=== PATIENT | female | born 1990 | race Caucasian/White ===

== ENCOUNTER 2018-03-05 03:25 | Outpatient (CLI) | payer OTHER | END 2018-03-05 03:26 | disposition critical access hospital (66) | LOC: EMS 03:25 | PROVIDERS: ATTEND Surgery | DX: R07.89 Other chest pain (principal); R06.02 Shortness of breath; R20.2 Paresthesia of skin | CPT/HCPCS: A0425; A0427 ==

== ENCOUNTER 2018-03-05 03:35 | Emergency (ER) | payer OTHER ==
[2018-03-05] MEDS ORDERED: SODIUM CHLORIDE 0.9% 1,000 ML IV ONE (03:55)
[2018-03-05] MEDS ORDERED: ONDANSETRON 4 MG/2 ML VIAL IVP STA (03:55)
[2018-03-05] MEDS ORDERED: MORPHINE 10 MG/ML VIAL IVP STA (03:55)
[2018-03-05 04:03] LABS: BASOPHILS # (AUTO) 0.1 10^3/uL (0.0-0.1); EOSINOPHILS # (AUTO) 0.3 10^3/uL (0.0-0.7); EOSINOPHILS % (AUTO) 3.5 %; LYMPHOCYTES # (AUTO) 1.5 10^3/uL (1.5-3.5); LYMPHOCYTES % (AUTO) 17.1 %; MEAN CORPUSCULAR HEMOGLOBIN 29.2 pg (27.0-31.0); MEAN CORPUSCULAR HGB CONC 34.2 g/dL (32.0-36.0); MEAN CORPUSCULAR VOLUME 85.5 fL (81.0-99.0); MEAN PLATELET VOLUME 8.2 fL (7.9-10.8); MONOCYTES # (AUTO) 0.5 10^3/uL (0.0-1.0); MONOCYTES % (AUTO) 5.7 %; NEUTROPHILS # (AUTO) 6.6 10^3/uL (1.5-6.6); NEUTROPHILS % (AUTO) 72.7 %; PLT - PLATELET COUNT 243 10^3/uL (130-450); RED BLOOD COUNT 4.44 10^6/uL (4.20-5.40); RED CELL DISTRIBUTION WIDTH 12.8 % (12.0-15.0); WHITE BLOOD COUNT 9.1 x10^3/uL (4.8-10.8)
[2018-03-05 04:15] LABS: ALBUMIN 3.5 g/dL (3.2-5.5); BILIRUBIN,TOTAL 0.4 mg/dL (0.2-1.0); CALCIUM 9.5 mg/dL (8.5-10.3); CREATININE 0.8 mg/dL (0.4-1.0); MAGNESIUM 1.9 mg/dL (1.7-2.8); TOTAL PROTEIN 6.9 g/dL (6.7-8.2)
--- NOTE | 2018-03-05 04:23 | XRAY Report ---
Procedure Date: 03/05/2018 Accession Number: [id number] / [id number] Procedure: XR - Chest 2 View X-Ray CPT Code: 08110 FULL RESULT: EXAM: CHEST RADIOGRAPHY EXAM DATE: 03/05/2018 04:16 AM. CLINICAL HISTORY: Chest pain. Shortness of breath. COMPARISON: None. TECHNIQUE: 2 views. FINDINGS: Lungs/Pleura: No alveolar consolidation or pleural effusion seen. No pneumothorax. Mediastinum: Heart and mediastinal contours are unremarkable. Other: None. IMPRESSION: 1. No acute abnormality seen in the chest. RADIA
--- NOTE | 2018-03-05 04:54 | ED Physician Documentation ---
History of Present Illness - Stated complaint Stated Complaint: CP/SOA - Chief complaint Chief Complaint: Cardiac - History obtained from History obtained from: Patient - Additonal information Additional information: 28-year-old female presents the emergency department with chest pain and shortness of breath which started this evening. The patient reports pain throughout her bilateral ribs which cause her to feel short of breath. The patient was brought to the emergency department by EMS. Symptoms are described as moderate. The patient denies any radiation of symptoms. No recent URI symptoms, fevers, nasal congestion, cough, no abdominal pain or diaphoresis or nausea or vomiting. No other associated symptoms. No triggering factors. No specific relieving factors Review of Systems Constitutional: denies: Fever, Chills Eyes: denies: Discharge Ears: denies: Ear pain Nose: denies: Congestion Cardiac: reports: Chest pain / pressure. denies: Palpitations GI: denies: Abdominal Pain : denies: Dysuria Skin: denies: Rash Musculoskeletal: denies: Back pain Neurologic: denies: Generalized weakness Immunocompromised: denies: Chemotherapy PD PAST MEDICAL HISTORY - Past Medical History Past Medical History: No - Past Surgical History Past Surgical History: No - Present Medications Home Medications: Ambulatory Orders Medication Instructions Recorded Confirmed No Known Home Medications [No 03/05/18 03/05/18 Known Home Medications] - Allergies Allergies/Adverse Reactions: Allergies Allergy/AdvReac Type Severity Reaction Status Date / Time No Known Drug Allergies Allergy Verified 03/05/18 03:39 - Social History Does the pt smoke?: No Smoking Status: Never smoker Does the pt drink ETOH?: No Does the pt have substance abuse?: No - Immunizations Immunizations are current?: Yes PD ED PE NORMAL - General General: Alert and oriented X 3, No acute distress - HEENT HEENT: Atraumatic, PERRL, EOMI - Neck Neck: Supple, no meningeal sign - Cardiac Cardiac: RRR, Strong equal pulses - Respiratory Respiratory: No respiratory distress, Clear bilaterally - Abdomen Abdomen: Soft, Non tender, Non distended - Derm Derm: Normal color - Extremities Extremities: No deformity - Neuro Neuro: Alert and oriented X 3, Normal speech - Psych Psych: Normal mood Results - Vitals Vitals: Vital Signs - 24 hr 03/05/18 03/05/18 03:40 05:06 Temperature 36.9 C Heart Rate 80 83 Respiratory 14 19 Rate Blood Pressure 133/84 H 127/91 H O2 Saturation 98 98 Oxygen O2 Source Room air - EKG (time done) 03: 42 Rate: Rate (enter#) Rhythm: NSR Intervals: Normal ID, QRS normal Ischemia: Normal ST segments Other comments: Other comments (Normal sinus rhythm without acute ischemic changes) - Labs Labs: Laboratory Tests 03/05/18 03/05/18 03/05/18 03:58 03:58 03:58 WBC 9.1 RBC 4.44 Hgb 13.0 Hct 38.0 MCV 85.5 MCH 29.2 MCHC 34.2 RDW 12.8 Plt Count 243 MPV 8.2 Neut # (Auto) 6.6 Lymph # (Auto) 1.5 [place] # (Auto) 0.5 Eos # (Auto) 0.3 Baso # (Auto) 0.1 Absolute Nucleated RBC 0.00 Nucleated RBC % 0.0 D-Dimer Sodium 138 Potassium 3.5 Chloride 105 Carbon Dioxide 21 Anion Gap 12.0 BUN 20 Creatinine 0.8 Estimated GFR (MDRD) 86 L Glucose 98 Calcium 9.5 Magnesium 1.9 Total Bilirubin 0.4 AST 30 ALT 16 Alkaline Phosphatase 90 Troponin I < 0.04 B-Natriuretic Peptide Total Protein 6.9 Albumin 3.5 Globulin 3.4 Albumin/Globulin Ratio 1.0 Lipase 32 03/05/18 03/05/18 03:58 03:58 WBC RBC Hgb Hct MCV MCH MCHC RDW Plt Count MPV Neut # (Auto) Lymph # (Auto) [place] # (Auto) Eos # (Auto) Baso # (Auto) Absolute Nucleated RBC Nucleated RBC % D-Dimer < 200.0 L Sodium Potassium Chloride Carbon Dioxide Anion Gap BUN Creatinine Estimated GFR (MDRD) Glucose Calcium Magnesium Total Bilirubin AST ALT Alkaline Phosphatase Troponin I B-Natriuretic Peptide 5 Total Protein Albumin Globulin Albumin/Globulin Ratio Lipase - Rads (name of study) Chest x-ray Radiology: Final report received PD MEDICAL DECISION MAKING - ED course ED course: The patient's workup does not reveal an acute etiology for the source of her symptoms. On reevaluation the patient is resting comfortably and her symptoms appear to be appropriate for further workup as an outpatient. I discussed the findings and plan with the patient who understands and agrees.I discussed warning signs and recommended returning to the emergency department immediately for worsening or any concerns - Sepsis Event Vital Signs: Vital Signs - 24 hr 03/05/18 03/05/18 03:40 05:06 Temperature 36.9 C Heart Rate 80 83 Respiratory 14 19 Rate Blood Pressure 133/84 H 127/91 H O2 Saturation 98 98 Oxygen O2 Source Room air Departure - Departure Disposition: 01 Home, Self Care Clinical Impression: Chest pain Qualifiers: Chest pain type: other chest pain Qualified Code(s): R07.89 - Other chest pain Condition: Good Instructions: ED Chest Pain [facility] Follow-Up: [facility] [Provider Group] - Within 3 Days Comments: Please return to the emergency department for worsening symptoms or any concerns
[2018-03-05 05:07] VITALS: BP 127/91
== END 2018-03-05 05:25 | disposition home or self-care (01) ==
LOC: ED 03:35
DX: R07.89 Other chest pain (principal)
CPT/HCPCS: 36415; 71046; 80053; 83690; 83735; 83880; 84484; 85025; 85379; 93005; 96361; 96374; 99283

== ENCOUNTER 2018-03-13 14:15 | Outpatient (CLI) | payer OTHER | END 2018-03-13 14:16 | disposition home or self-care (01) | LOC: EMS 14:15 | PROVIDERS: ATTEND Surgery | DX: R07.9 Chest pain, unspecified (principal); R06.02 Shortness of breath | CPT/HCPCS: A0425; A0427 ==

== ENCOUNTER 2018-03-13 14:29 | Emergency (ER) | payer OTHER ==
--- NOTE | 2018-03-13 15:09 | ED Physician Documentation ---
History of Present Illness - Stated complaint Stated Complaint: SOA - Chief complaint Chief Complaint: Cardiac - History obtained from History obtained from: Patient - History of Present Illness Timing: Today, How many hours ago (1) Pain level max: 8 Pain level now: 0 Improved by: time Worsened by: breathing, palpation, moving - Additonal information Additional information: Patient is a 28-year-old female who presents to the emergency department with central and right upper quadrant abdominal/chest pain today. This occurred approximately an hour and half to 2 hours after eating mac. Similar symptoms a week ago. No fevers. No vomiting. Did have some nausea. Currently the pain has remitted and she is asymptomatic. Feels much better. Was seen here a week ago for same with a normal workup. Review of Systems Constitutional: denies: Fever, Chills Cardiac: denies: Chest pain / pressure Respiratory: denies: Cough GI: denies: Vomiting, Diarrhea : reports: Other (6 weeks with her 4th child.). denies: Dysuria, Frequency, Hesitancy, Now EGA Skin: denies: Rash Musculoskeletal: denies: Neck pain, Back pain Neurologic: denies: Headache PD PAST MEDICAL HISTORY - Past Medical History Past Medical History: No Other Past Medical History: pt is 5 weeks post , breast feeding, vaginal delivery. - Past Surgical History Past Surgical History: No - Present Medications Home Medications: Ambulatory Orders Medication Instructions Recorded Confirmed Cholecalciferol (Vitamin D3) 1 PO DAILY 03/13/18 [Vitamin D3] - Allergies Allergies/Adverse Reactions: Allergies Allergy/AdvReac Type Severity Reaction Status Date / Time No Known Drug Allergies Allergy Verified 03/05/18 03:39 - Living Situation Living Situation: reports: With family Living Arrangement: reports: At home - Social History Does the pt smoke?: No Smoking Status: Never smoker Does the pt drink ETOH?: No Does the pt have substance abuse?: No - Family History Family history: reports: Non contributory - Immunizations Immunizations are current?: Yes PD ED PE NORMAL - Vitals Vital signs reviewed: Yes - General General: Alert and oriented X 3, No acute distress - HEENT HEENT: Moist mucous membranes - Neck Neck: Supple, no meningeal sign - Cardiac Cardiac: RRR, Strong equal pulses - Respiratory Respiratory: No respiratory distress, Clear bilaterally - Abdomen Abdomen: Soft, Non tender, Non distended - Back Back: No CVA TTP, No spinal TTP - Derm Derm: Warm and dry - Extremities Extremities: No edema - Neuro Neuro: Alert and oriented X 3 - Psych Psych: Normal mood, Normal affect Results - Vitals Vitals: Vital Signs - 24 hr 03/13/18 03/13/18 14:28 15:59 Temperature 36.6 C 36.4 C L Heart Rate 78 88 Respiratory 15 15 Rate Blood Pressure 130/95 H 137/95 H O2 Saturation 97 97 Oxygen O2 Source Room air - EKG (time done) 1445 Rate: Rate (enter#) (77) Rhythm: NSR [place]: Normal Intervals: Normal [place] QRS: Normal Ischemia: Non specific changes - Labs Labs: Laboratory Tests 03/13/18 03/13/18 15:09 15:09 WBC 13.3 H RBC 4.41 Hgb 12.7 Hct 37.7 MCV 85.4 MCH 28.8 MCHC 33.7 RDW 12.9 Plt Count 245 MPV 8.6 Neut # (Auto) 10.9 H Lymph # (Auto) 1.2 L [place] # (Auto) 0.8 Eos # (Auto) 0.2 Baso # (Auto) 0.1 Absolute Nucleated RBC 0.00 Nucleated RBC % 0.0 Sodium 138 Potassium 3.7 Chloride 106 Carbon Dioxide 25 Anion Gap 7.0 BUN 16 Creatinine 0.7 Estimated GFR (MDRD) 100 Glucose 102 H Calcium 9.5 Total Bilirubin 0.7 AST 33 ALT 19 Alkaline Phosphatase 91 Total Protein 7.2 Albumin 3.6 Globulin 3.6 Albumin/Globulin Ratio 1.0 Lipase 32 PD MEDICAL DECISION MAKING - ED course Complexity details: reviewed old records, reviewed results, re-evaluated patient , considered differential, d/w patient ED course: Patient is a 28-year-old female who presents to the emergency department what appears to be biliary colic. Bedside ultrasound reveals a gallbladder with a wall thickness of 2.8 mm. She does have several small mobile stones. No evidence of cholecystitis. Her labs do not reveal any acute abnormalities other than a mild elevated white blood cell count. Tolerating p.o. without difficulty. Well-appearing, nontoxic. Afebrile. No evidence of acute coronary syndrome. We will have her follow-up with her doctor for further care. Will likely need an outpatient official ultrasound and possibly HIDA scan. Patient counseled to follow a low-fat diet. Patient counseled regarding signs and symptoms for which I believe and urgent re-evaluation would be necessary. Patient with good understanding of and agreement to plan and is comfortable going home at this time This document was made in part using voice recognition software. While efforts are made to proofread this document, sound alike and grammatical errors may occur. - Sepsis Event Vital Signs: Vital Signs - 24 hr 03/13/18 03/13/18 14:28 15:59 Temperature 36.6 C 36.4 C L Heart Rate 78 88 Respiratory 15 15 Rate Blood Pressure 130/95 H 137/95 H O2 Saturation 97 97 Oxygen O2 Source Room air Departure - Departure Disposition: 01 Home, Self Care Clinical Impression: Biliary colic Condition: Good Instructions: ED Gallstone W Biliary Colic Follow-Up: Dillon Diaz MD [Primary Care Provider] - Within 1 week Comments: You do have several small stones in your gallbladder. It is not inflamed today. You should have an official abdominal ultrasound as an outpatient with your doctor. They may also choose to order a HIDA scan. Until then you should follow a low-fat diet as this may worsen your symptoms. Return if you worsen Discharge Date/Time: 03/13/18 16:01
[2018-03-13 15:24] LABS: BASOPHILS # (AUTO) 0.1 10^3/uL (0.0-0.1); EOSINOPHILS # (AUTO) 0.2 10^3/uL (0.0-0.7); EOSINOPHILS % (AUTO) 1.4 %; HGB - HEMOGLOBIN 12.7 g/dL (12.0-16.0); LYMPHOCYTES # (AUTO) 1.2 10^3/uL (1.5-3.5); LYMPHOCYTES % (AUTO) 9.4 %; MEAN CORPUSCULAR HEMOGLOBIN 28.8 pg (27.0-31.0); MEAN CORPUSCULAR HGB CONC 33.7 g/dL (32.0-36.0); MEAN CORPUSCULAR VOLUME 85.4 fL (81.0-99.0); MEAN PLATELET VOLUME 8.6 fL (7.9-10.8); MONOCYTES # (AUTO) 0.8 10^3/uL (0.0-1.0); NEUTROPHILS # (AUTO) 10.9 10^3/uL (1.5-6.6); NEUTROPHILS % (AUTO) 82.2 %; PLT - PLATELET COUNT 245 10^3/uL (130-450); RED BLOOD COUNT 4.41 10^6/uL (4.20-5.40); RED CELL DISTRIBUTION WIDTH 12.9 % (12.0-15.0); WHITE BLOOD COUNT 13.3 x10^3/uL (4.8-10.8)
[2018-03-13 15:34] LABS: ALBUMIN 3.6 g/dL (3.2-5.5); BILIRUBIN,TOTAL 0.7 mg/dL (0.2-1.0); CALCIUM 9.5 mg/dL (8.5-10.3); CREATININE 0.7 mg/dL (0.4-1.0); TOTAL PROTEIN 7.2 g/dL (6.7-8.2)
[2018-03-13 16:01] VITALS: BP 137/95
== END 2018-03-13 16:01 | disposition home or self-care (01) ==
LOC: ED 14:29
DX: K80.50 Calculus of bile duct without cholangitis or cholecystitis without obstruction (principal)
CPT/HCPCS: 36415; 80053; 83690; 85025; 93005; 99283

== ENCOUNTER 2018-04-24 08:37 | Day surgery (SDC) | payer OTHER ==
[~2018-04-24 08:37] MED LIST: ceFAZolin 2 GM/50 ML 2 GM/50 ML BAG IV ONE
[2018-04-24] MEDS ORDERED: LACTATED RINGERS 1,000 ML IV ONE ×3 (08:43→12:13)
[2018-04-24 09:02] LABS: HCG UR QUAL NEGATIVE
--- NOTE | 2018-04-24 09:18 | ANESTHESIA ---
Pre-Anesthesia VS, & Labs - Diagnosis Symptomatic Cholelithiasis - Procedure Laparoscopic Cholecystectomy Vital Signs: Temp Pulse Resp BP Pulse Ox 36.6 C 68 16 127/89 H 100 04/24/18 08:51 04/24/18 08:51 04/24/18 08:51 04/24/18 08:51 04/24/18 08:51 Height 5 ft 4 in Weight (kg) 74 kg Body Mass Index 27.4 - NPO >8 hours - Is Patient ?: No - Lab Results Lab results reviewed: Yes Home Medications and Allergies Home Medications: Ambulatory Orders Medication Instructions Recorded Confirmed Cholecalciferol (Vitamin D3) 1 tab PO DAILY 03/13/18 04/24/18 [Vitamin D3] Pnv No.122/Iron/Folic Acid 1 each PO DAILY 04/24/18 04/24/18 [ Multi Tablet] Cholecalciferol (Vitamin D3) [Vitamin D3] 1 tab PO DAILY 03/13/18 Pnv No.122/Iron/Folic Acid [ Multi Tablet] 1 each PO DAILY 04/24/18 Allergies/Adverse Reactions: Allergies Allergy/AdvReac Type Severity Reaction Status Date / Time No Known Drug Allergies Allergy Verified 03/05/18 03:39 Anes History & Medical History - Anesthetic History Anesthesia Complications: reports: Other-see comment (no prior surgery) Family history of Anesthesia Complications: Denies Family history of Malignant Hyperthermia: Denies - Medical History Cardiovascular: reports: None Pulmonary: reports: Asthma Gastrointestinal: reports: None Urinary: reports: None Musculoskeletal: reports: None Endocrine/Autoimmune: reports: None Skin: reports: None Smoking Status: Never smoker Other Past Medical History: currently 2mo old - Surgical History Other Past Surgical History: none Results - EKG Results EKG Comparison: Reviewed EKG (NSR@77), Normal EKG Exam General: Alert, Oriented x3, Cooperative, No acute distress Dental: WNL Mouth Opening: Greater than 4 Fingerbreadths Neck Mobility: Normal Mallampati classification: I Respiratory: Lungs clear, Normal breath sounds, No respiratory distress, No accessory muscle use Cardiovascular: Regular rate, Normal S1, Normal S2, No murmurs Neurological: Normal speech Mental/Cognitive Status: Alert/Oriented X3, Normal for patient Cognitive Status: Within normal limits Plan Anesthesia Type: General Consent for Procedure(s) Verified and Reviewed: Yes Code Status: Attempt Resuscitation ASA classification: 2-Mild systemic disease Is this case an emergency?: No
[2018-04-24] MEDS ORDERED: ROCURONIUM 50 MG/5 ML VIAL IVP ONE (10:00)
[2018-04-24] MEDS ORDERED: diphenhydrAMINE INJ 50 MG/ML VIAL IVP ONE (10:00)
[2018-04-24] MEDS ORDERED: GLYCOPYRROLATE 1 MG/5 ML VIAL IVP ONE (10:00)
[2018-04-24] MEDS ORDERED: LIDOCAINE-MPF 2% 5 ML VIAL IM ONE (10:00)
[2018-04-24] MEDS ORDERED: PROPOFOL 1000 MG/100 ML IV ONE (10:00)
[2018-04-24] MEDS ORDERED: ONDANSETRON 4 MG/2 ML VIAL IVP ONE (10:00)
[2018-04-24] MEDS ORDERED: METOCLOPRAMIDE 10 MG/2 ML VIAL IVP ONE (10:00)
[2018-04-24] MEDS ORDERED: fentaNYL 100 MCG/2 ML VIAL IVP ONE (10:00)
[2018-04-24] MEDS ORDERED: NEOSTIGMINE 1 MG/1 ML 10 ML MDV IVP ONE (10:00)
[2018-04-24] MEDS ORDERED: MIDAZOLAM 2 MG/2 ML VIAL IVP ONE (10:00)
[2018-04-24] MEDS ORDERED: DEXAMETHASONE 4 MG/ML VIAL IVP ONE (10:00)
[2018-04-24] MEDS ORDERED: BUPIVACAINE 0.5% PF 30 ML VIAL ONE (10:20)
[2018-04-24] MEDS ORDERED: BUPIVACAINE 0.5% PF 30 ML VIAL SUBQ ONE ×2 (11:02)
--- NOTE | 2018-04-24 11:37 | OPERATIVE REPORT ---
Operative Report - General Procedure Date: 04/24/18 Planned Procedure: Laparoscopic cholecystectomy, possible open cholecystectomy, possible intra Pre-Op Diagnosis: Symptomatic cholelithiasis Procedure Performed: Laparoscopic cholecystectomy and umbilical herniorrhaphy Post Op Diagnosis: Symptomatic cholelithiasis and umbilical hernia - Procedure Note Primary Surgeon: Glenn Choudhury MD Anesthesia Provider: Tati Cortez CRNA Anesthesia Technique: General ET tube, Local (30 mL of half percent Marcaine) IV Fluids (mL): 800 Estimated Blood Loss (mL): 7 Complications: None. - Other Other Information/Narrative: OPERATIVE DESCRIPTION/REPORT: After verbal and written informed consent was obtained detailing the risks of infection, bleeding with all of its risks including transfusion, common bile duct injury, and the patient was brought to the operative suite and placed in the supine position on the operating room table. Monitoring devices were applied along with TEDs and pneumatic compressive stockings. Care was taken to avoid pressure points. Prophylactic antibiotics were given. An adequate level of general endotracheal anesthesia was established by Tati Cortez CRNA. The abdomen was then prepped with ChloraPrep and draped in a sterile fashion. A "time in" then confirmed that the patient was identified with 3 identifiers (name, date and medical record number), the history and physical was in the chart, the signed consent confirming the procedure was in the chart, the patient was in the correct position, the aforementioned prophylactic measures were in place or given, we had the correct personnel and equipment to complete the procedure and that anesthesia, surgery and nursing were given an opportunity to express any concerns. The initial incision was at the umbilicus and dissection to a small previously noted umbilical hernia was completed using blunt dissection. The hernia defect was widened using a Liliana. In this location, a 12 mm blunt tipped, balloon tipped port was placed and the balloon was inflated to keep the port in position. The abdominal cavity was insufflated with carbon dioxide to steady- state pressure of 15 mmHg. Two additional 5 mm ports were placed in standard location for laparoscopic cholecystectomy (subxiphoid and right subcostal) under direct vision of the 30 degree laparoscope and without incident. The patient was then placed in reverse Trendelenburg position and was rotated slightly to their left. The gallbladder fundus was grasped with an atraumatic grasper. Eventually, we identified the infundibulum, and this was then grasped and retracted inferior and laterally. Dissection was then begun in the angle of [place]. The cystic duct and (slightly medially and posteriorly) cystic artery were clearly identified. The critical view was obtained. Two clips proximally and one clip distally were used to control first the cystic duct and then cystic artery. First the cystic duct and then the cystic artery were then transected with laparoscopic murphy. The gallbladder was then removed from its fossa in a retrograde fashion using electrocautery. With the 30 degree 5 mm scope in the subxiphoid position, the gallbladder was placed in an EndoCatch bag to be extracted through the 12 mm port site. No irrigation was used as there was absolutely no spillage. I inspected the gallbladder fossa and there was no bleeding or bile leak. Clips on the cystic duct and cystic artery appeared to be secure. I briefly visually explored the abdomen. There was no other evidence of overt pathology. I injected the port sites at the peritoneal, fascial, and skin levels under direct vision with 0.5% Marcaine. All ports and the EndoCatch containing the gallbladder were removed. Following gallbladder removal, the remaining carbon dioxide was expelled from the abdomen. The fascia at the umbilicus was reapproximated using 2 [id number] 0 Vicryl sutures. In doing so the umbilical hernia was repaired. The skin at each port site was approximated using a subcuticular 4-0 Monocryl. The surgical count of instruments, needles and sponges was reported as correct twice. Mastisol, Steri-Strips and sterile surgical dressings were applied. The patient was then awakened from anesthesia, extubated, and having tolerated the procedure well, was transported to the recovery room. No complications were encountered. A "time out" confirmed the operation performed, the fluids given, the estimated blood loss and anesthesia, surgery and nursing were given an opportunity to express any concerns. [employer] disclaimer: This document was created in part using voice recognition technology. Because of the inherent limitations of the system ([employer]'s [employer] user manual states that the licensee understands that speech recognition is a statistical process and that recognition errors are inherent in the process), occasional same sounding word substitutions and grammatical errors do occur and persist despite proofreading. Please read this document for context.
[2018-04-24] MEDS ORDERED: ONDANSETRON 4 MG/2 ML VIAL IVP PRN (11:41)
[2018-04-24] MEDS ORDERED: HYDROmorphone 0.5 MG/0.5 ML SYRINGE IVP PRN (11:41)
[2018-04-24] MEDS ORDERED: oxyCODONE 5 MG TABLET PO PRN (11:41)
[2018-04-24] MEDS: fentaNYL 100 MCG/2 ML VIAL ONE ×2 (12:12→12:25)
[2018-04-24] MEDS ORDERED: HYDROcod/ACETAM 5/325 MG TABLET ONE (13:26)
[2018-04-24 14:09] VITALS: BP 131/90
== END 2018-04-24 08:38 | disposition home or self-care (01) ==
LOC: SDS 08:37
PROVIDERS: ATTEND Surgery
PROC: 0FT44ZZ Resection of Gallbladder, Percutaneous Endoscopic Approach (ICD-10-PCS; principal; 2018-04-24 09:45)
DX: K80.10 Calculus of gallbladder with chronic cholecystitis without obstruction (principal); K42.9 Umbilical hernia without obstruction or gangrene; Z87.09 Personal history of other diseases of the respiratory system
CPT/HCPCS: 47562; 81025; A9270; J0690; J1200; J2765; J7120